=== PATIENT | male | born 1960 | race Caucasian/White ===

== ENCOUNTER 2019-05-28 15:59 | Emergency (ER) | payer MEDICARE, SELFPAY ==
[2019-05-28] VITALS (9 sets, daily range): BP systolic 165; BP diastolic 81; PULSE 88–90; RESP 16; TEMP 36.2; O2SAT 98–99; BMI 23.1
[2019-05-28 16:52] LABS: Absolute Lymphocyte Count 1.27 X10^3/uL (0.83-4.51); Absolute Neutrophil Count 3.9 X10^3/uL (2.0-7.7); Basophil# 0.05 X10^3/uL; Basophil% 0.8 % (0-1); Eosinophil# 0.24 X10^3/uL; Hematocrit 38.3 % (40-54); Hemoglobin 12.4 g/dL (13.0-16.5); Lymphocyte # 1.27 X10^3/ul (4.0); Lymphocyte % 21.2 % (19-41); Mean Corp Hgb Conc 32.4 g/dL (32-36); Mean Corpuscular Hgb 29.1 pg (27.0-32.0); Mean Corpuscular Volume 89.9 fL (80-94); Mean Platelet Vol. 8.8 fl (6.2-12.0); Monocyte% 8.4 % (0-10); NRBC Flagged by Analyzer 0 % (0-5); Neutrophil # 3.89 X10^3/uL (2.7-7.7); Neutrophil % 65.1 % (47-70); Platelet Count 258 K/mm3 (150-450); RBC Distribution Width CV 13.5 % (11.6-14.6); RBC Distribution Width SD 43.9 fl (35.1-43.9); Red Blood Count 4.26 M/mm3 (4.6-6.2)
[2019-05-28 17:08] LABS: BUN 14 mg/dL (7-18); Creatinine, Serum 1.01 mg/dL (0.70-1.30); Estimated Creatinine Clearance 88.42 ml/min; Glucose 157 mg/dL (74-106)
[2019-05-28 17:09] LABS: Anion Gap 4 (5-15); BUN/Creat Ratio 13.9 RATIO (10-20); Calcium,Total 9.5 mg/dL (8.5-10.1); Chloride 104 mmol/L (98-107); EST Glomerular Filtration Rate 80 mL/min (>60); Est Glom Filt Rate - Afr Amer 97 mL/min (>60); Potassium 3.8 mmol/L (3.5-5.1); Sodium Level 138 mmol/L (136-145)
[2019-05-28 17:17] LABS: Alcohol, Blood (Medical)-Serum < 3.0 mg/dL
--- NOTE | 2019-05-28 17:29 | EKG12_ITS ---
Test Reason : Blood Pressure : / mmHG Vent. Rate : 084 BPM Atrial Rate : 084 BPM P-R Int : 146 ms QRS Dur : 100 ms QT Int : 388 ms P-R-T Axes : 076 018 057 degrees QTc Int : 458 ms Sinus rhythm with Fusion complexes Inferior infarct , age undetermined Abnormal ECG Confirmed by BAKARI OLVERA ([id number]), editorial specialist LEEANNA MITTAL ([id number]) on 05/31/2019 3:29:44 PM Referred By: BERNADINE Confirmed By:BAKARI OLVERA
--- NOTE | 2019-05-28 17:30 | NURSING ---
NO OLD EKGS
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
[2019-05-28 18:39] LABS: AST(SGOT) 13 U/L (15-37); Alanine Aminotransfer ALT/SGPT 27 U/L (16-61); Albumin, Serum 3.7 g/dL (3.2-5.0); Alkaline Phosphatase 132 U/L (45-117); Bilirubin, Direct < 0.05 mg/dL (0.00-0.30); Protein, Total 7.7 g/dL (6.4-8.2)
[2019-05-28 18:39] LABS: Amphetamine Urine VISTA NEGATIVE (<1000 ng/mL); Barbiturate Urine VISTA NEGATIVE (< 200 ng/mL); Benzodiazepine Urine VISTA NEGATIVE (< 200 ng/mL); Cocaine Urine VISTA NEGATIVE (< 300 ng/mL); Ecstacy Urine VISTA NEGATIVE (< 500 ng/mL); Methadone Urine VISTA NEGATIVE (< 300 ng/mL); PCP Urine VISTA NEGATIVE (< 25 ng/mL); THC Urine VISTA POSITIVE (< 50 ng/mL); Vista UDS pH Range 6
--- NOTE | 2019-05-28 18:48 | ED.RN ---
PT IN ROOM MAKING COMMENTS OF SELF DISCHARGE SO HE CAN GO WALK OFF A [address] [place]
--- NOTE | 2019-05-28 19:33 | CM.ED ---
Social Work Patient medically cleared per Dr. Osei. Telephone call to [facility]. They do not have any open beds at this time. Telephone call to [facility]. They are able to review referral. Clinical information faxed. They are in-network with patient insurance. Pending approval. Evelyne FERRERA, JESSICA
[2019-05-28] MEDS: hydrOXYzine PAM 25 MG Capsule 50 MG PO (19:43)
--- NOTE | 2019-05-28 20:08 | CM.ED ---
Social Work Telephone call from [facility]. Patient is currently out of psych day benefit with insurance. Collaborating with Dr. Osei. Plan would be to still attempt to establish psychiatric placement due to amount of stressors and patient intent. Telephone call to [facility]. [facility] to come and assist with placement. Possibly [facility] due to patient exhausting insurance benefit. Evelyne Zhang SIGN FABRICATOR, JESSICA
--- NOTE | 2019-05-28 21:05 | CM.ED ---
Social Work Collaborating with [facility] to. Deciding to attempt placement at another facility as per patient patient has only used 5-6 psych days within the past 4 years. Telephone call to [facility]. They are able to review clinicals. Clinical information faxed. Pending approval. Evelyne FERRERA, JESSICA
--- NOTE | 2019-05-28 21:43 | CM.ED ---
Social Work Telephone call from [facility], confirming that patient is out of psych benefit. Updated [facility] from [facility]. [facility] to continue with placement. Evelyne Zhang MSW, JESSICA
[2019-05-29] VITALS (15 sets, daily range): BP systolic 120–158; BP diastolic 45–82; PULSE 64–90; RESP 12–17; TEMP 36.9; O2SAT 96–100
[2019-05-29] MEDS: Acetaminophen 325 MG Tablet 650 MG PO ×3 (07:33→18:52)
[2019-05-29 09:51] LABS: Bedside Glucose 171 mg/dL (70-110)
[2019-05-29] MEDS: Ziprasidone IM 20 MG/ML VIAL IM (09:56)
--- NOTE | 2019-05-29 12:27 | ED.RN ---
[facility] has 3-4 people ahead of him. it will probably be tomorrow before beds are available.
[2019-05-29] MEDS: hydrOXYzine PAM 25 MG Capsule 50 MG PO (18:52)
--- NOTE | 2019-06-10 00:07 | ED.VISSUMM ---
- ER Visit Summary Date of Service: 05/28/19 Chief Complaint: Suicidal ideation History of Present Illness: The patient is a 58 M with no primary care physician. He reports that he has moved between here in [place] multiple times in the past year. He reports that he has suicidal ideation that began 4 days ago. States that he is upset about my life. He does not have anywhere to live. He reports that he has had this previously. He was hospitalized at [facility] 2 weeks ago. Patient reports that he was discharged with prescriptions for his psychiatric medications as well as medications for his blood pressure. He has not been able to get any of these filled as he has no form of ID or money. Physical Examination: Vitals: Stable. Afebrile. General: Well-nourished and well-developed. Head: Normocephalic atraumatic. Neck: Supple, no lymphadenopathy. No JVD. Nontender. Cardiovascular: Regular rate and rhythm. No murmurs. Respiratory: No respiratory distress. Clear to auscultation bilaterally. Abdominal: Soft, nontender, nondistended, normal bowel sounds. No guarding, rebound, or peritoneal signs. Back: Nontender. Extremities: Nontender, no edema. Skin: Normal color, no rash. Neurologic: Alert and oriented ?3. Cranial nerves II through XII are intact. Normal strength and sensation. Mental status exam: Patient appears their stated age. Good posture and grooming. Good eye contact. Normal rate, volume, and latency of speech. No homicidal ideation. No auditory or visual hallucinations. Flow of thought is logical. Insight and judgment is fair. Test Results: EKG is sinus at 84 with nonspecific changes. LFTs are marked for an AST of 13 and alk phos 132. Chem-7 shows a glucose 157. CBC shows an H&H 12.4 30.3. Tox screen shows marijuana. Alcohol is negative. Emergency Department Course and Treatment: The patient was discussed with case management. They have seen him. It appears that he has used up all of his days for psychiatric hospitalization through Medicare. Treatment Plan: The patient will be discussed with the counseling center as he will be have to be hospitalized as uninsured. Disposition: Pending Impression: 1. Suicidal ideation. This note was generated with [employer] dictation software. It may contain incorrect words, spelling, and punctuation that were not noted in review of the chart prior to signing ED Disposition - Plan for ED Patient: Disposition: Psychiatric Hospital or Unit Referrals: Care Physician,No Primary [Primary Care Provider] -
== END 2019-05-29 19:45 ==
PROVIDERS: Emergency Provider Emergency Medicine
DX: F20.9 Schizophrenia, unspecified (principal); F31.9 Bipolar disorder, unspecified; R45.851 Suicidal ideations; I48.91 Unspecified atrial fibrillation; I10 Essential (primary) hypertension; R05 Cough; Z72.0 Tobacco use; Z79.899 Other long term (current) drug therapy
CPT/HCPCS: 80048; 80076; 80307; 80320; 82962; 85025; 93005; 96372; 99285; J7030; G0480; J3486